=== PATIENT | male | born 1960 | race Caucasian/White ===

== ENCOUNTER 2019-06-20 16:10 | Emergency (ER) | payer OTHER ==
--- NOTE | 2019-06-20 16:35 | Emergency Department Record ---
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 The patient states he was doing some light work when it fired. It then fired again shortly after. He denied any CP, palpitations, or SOB prior. The patient does have a hx of significant cardiac dz and has had an AICD in for at least a year. The patient states it has fired twice in the past year and both times he was admitted to the hospital and was told he had VT. He denies any recent illnesses. MD Complaint: Other Onset/Timin -: Minutes(s) Onset: Other Consistency: Constant Improves With: Nothing Worsens With: Nothing Treatments Prior to Arrival: None - Related Data Home Medications Medication Instructions Recorded Confirmed Last Taken Amiodarone HCl [Pacerone] 200 mg PO DAILY 06/20/19 06/20/19 Unknown Aspirin [Aspir-Low] 81 mg PO DAILY 06/20/19 06/20/19 Unknown Clopidogrel Bisulfate [Plavix] 75 mg PO DAILY 06/20/19 06/20/19 Unknown Metoprolol Tartrate [Lopressor] 25 mg PO Q12H 06/20/19 06/20/19 Unknown [place]-3 Fatty Acids/Fish Oil [Fish 4 each PO DAILY 06/20/19 06/20/19 Unknown Oil 1,000 mg Capsule] Ramipril [Altace] 10 mg PO DAILY 06/20/19 06/20/19 Unknown Rosuvastatin Calcium [Crestor] 40 mg PO DAILY 06/20/19 06/20/19 Unknown Vitamin E 800 unit PO DAILY 06/20/19 06/20/19 Unknown Allergies Allergy/AdvReac Type Severity Reaction Status Date / Time meperidine [From Demerol] Allergy ALTERED Verified 06/20/19 16:25 MENTAL STATUS ticagrelor [From Brilinta] Allergy DIFFICULTY Verified 06/20/19 16:25 BREATHING Travel Screening - Travel/Exposure Within Last 30 Days Have you traveled within the last 30 days?: No Review of Systems Constitutional: Denies: Chills, Fever Eyes: Denies: Eye discharge ENT: Denies: Congestion Respiratory: Denies: Cough, Dyspnea Cardiovascular: Denies: Arrhythmia, Chest pain Endocrine: Denies: Fatigue Gastrointestinal: Denies: Nausea Genitourinary: Denies: Dysuria Musculoskeletal: Denies: Arthralgia Skin: Denies: Bruising Past Medical History - SOCIAL HISTORY Smoking Status: Former smoker Alcohol Use: None Drug Use: None - RESPIRATORY Hx Respiratory Disorders: No - CARDIOVASCULAR Hx Cardio Disorders: Yes Hx Abnormal EKG: Yes Hx Heart Attack: Yes Hx Hypertension: Yes Hx Irregular Heartbeat: Yes Hx Pacemaker/Defib: Yes - NEURO Hx Neuro Disorders: No - GI Hx GI Disorders: No - Hx Genitourinary Disorders: No - ENDOCRINE Hx Endocrine Disorders: No - MUSCULOSKELETAL Hx Musculoskeletal Disorders: No - PSYCH Hx Psych Problems: No - HEMATOLOGY/ONCOLOGY Hx Hematology/Oncology Disorders: Yes Hx Cancer: Yes Hx Chemotherapy: No Hx Radiation Therapy: No Family Medical History Any Significant Family History?: No Physical Exam - General General Appearance: Alert, Oriented x3, Cooperative, No acute distress - Head Head exam: Atraumatic, Normocephalic, Normal inspection - Eye Eye exam: Normal appearance, PERRL, EOMI - ENT Throat exam: Normal inspection. negative: Tonsillar erythema, Tonsillar exudate - Neck Neck exam: Normal inspection, Full ROM. negative: Tenderness - Respiratory Respiratory exam: Normal lung sounds bilaterally. negative: Respiratory distress - Cardiovascular Cardiovascular Exam: Regular rate, Normal rhythm, Normal heart sounds - GI/Abdominal GI/Abdominal exam: Soft, Normal bowel sounds. negative: Tenderness - Extremities Extremities exam: Normal inspection, Full ROM, Normal capillary refill. negative: Tenderness - Back Back exam: Reports: Normal inspection - Neurological Neurological exam: Alert, Normal gait. negative: Abnormal gait, Motor sensory d eficit - Psychiatric Psychiatric exam: negative: Anxious Course Vital Signs 06/20/19 16:19 Pulse Rate 75 Respiratory 20 Rate Pulse Ox 95 - Reevaluation(s) Reevaluation #1: The patient is doing very well at this time. He denies any pain or palpitations. I did discuss the normal lab work and the need for transfer to his Electrician Manager in [place]. 06/20/19 17:12 Reevaluation #2: The patient is doing very well at this time and has had no ectopy and no CP or SOB. We have attempted to contact his Electrician Manager multiple times and have not been successful. The patient REALLY would like to go to [facility] so I did discuss the case with Dr. Riley in the ER at [facility] and he did accept the patient in an ER to ER transfer. 06/20/19 17:55 Reevaluation #3: The patient is doing very well at this time. He denies any Cp, SOB or GILBERT and feels completely back to normal. 06/20/19 18:16 Medical Decision Making - Data Complexity MDM Data: Labs Ordered and/or Reviewed, EKG Ordered and/or Reviewed - Lab Data Result diagrams: 06/20/19 16:30 06/20/19 16:30 - EKG Data -: EKG Interpreted by Me EKG: LBBB Disposition Disposition: Transfer Clinical Impression: Arrhythmia Qualifiers: Arrhythmia type: unspecified cardiac arrhythmia Qualified Code(s): I49.9 - Cardiac arrhythmia, unspecified Disposition: Acute Care Hospital Transfer Transfer To: [facility] ER Reason For Transfer: Cardiology Accepting Physician: Osvaldo Time Discussed w/Accepting Physician: 17:56 Condition: (2) Stable Forms: Patient Portal Access Time of Disposition: 17:56 Quality - Quality Measures Quality Measures: N/A - Blood Pressure Screening View Details: Yes Does Patient Have Any of the Following: Active Dx of HTN Blood Pressure Classification: Hypertensive Reading Systolic Measurement: 150 Diastolic Measurement: 106 Screening for High Blood Pressure: Patient Exclusion, Hx of HTN [[id number]]
[2019-06-20 16:42] LABS: ABSOLUTE NEUTROPHIL COUNT 5.61; BASO % 0.4 % (0-6); GRAN % 60.5 % (47-80); HEMATOCRIT 45.8 % (42.0-52.0); HEMOGLOBIN 14.7 gm/dl (14.0-18.0); LYMPH % 24.4 % (16-45); MEAN CELL VOLUME 95.2 fl (81-97); MEAN CORPUSCULAR HEMOGLOBIN 30.6 pg (27-33); MEAN CORPUSCULAR HGB CONC 32.1 g/dl (32-36); MEAN PLATELET VOLUME 9.7 fl (7.4-10.4); MONO % 11.7 % (0-9); PLATELET COUNT 273 K/uL (130-400); RED BLOOD COUNT 4.81 M/uL (4.40-5.70); WHITE BLOOD COUNT W/O DIFF 9.3 K/uL (4.2-12.2)
[2019-06-20 16:55] LABS: BLOOD UREA NITROGEN 21 mg/dL (8-23); EST GLOMERULAR FILTRATION RATE > 60 mL/min; TOTAL PROTEIN 7.1 g/dL (6.6-8.7)
[2019-06-20 16:57] LABS: GLUCOSE,RANDOM 164 mg/dL (74-109)
[2019-06-20 17:00] LABS: ALB/GLOB RATIO 1.6 (1.1-1.8); ALBUMIN 4.4 g/dL (4.0-5.0); ALKALINE PHOSPHATASE 77 U/L (40-129); ALT/SGPT 22 U/L (<41); AST/SGOT 18 U/L (10.0-50.0); CREATINE PHOSPHOKINASE 99 U/L (39-308)
[2019-06-20 17:02] LABS: CKMB 1.6 ng/mL (<6.73)
[2019-06-20] MEDS: METOPROLOL TART 25 MG TABLET PO ONE (17:45)
== END 2019-06-20 18:44 | disposition short-term general hospital (02) ==
LOC: ER 16:10
DX: I49.9 Cardiac arrhythmia, unspecified (principal); I44.7 Left bundle-branch block, unspecified; I10 Essential (primary) hypertension; I25.2 Old myocardial infarction; Z87.891 Personal history of nicotine dependence; Z95.0 Presence of cardiac pacemaker
CPT/HCPCS: 80053; 82550; 82553; 84484; 85025; 93005; 93010; 99285